=== PATIENT | female | born 1985 | race African-American/Black ===

== ENCOUNTER 2022-01-20 09:05 | Outpatient (REF) | payer OTHER, SELFPAY ==
[2022-01-20 11:33] LABS: MANUAL DIFF FLAG NO
[2022-01-20 11:43] LABS: Basophils Percent Auto 0.3 % (0-2); Eosinophils Absolute Auto 0.2 X10*3/uL (0.0-0.4); Eosinophils Percent Auto 2.9 % (0-4); Hematocrit 41.8 % (37.0-47.0); Hemoglobin 13.7 g/dl (12.0-16.0); Imm Gran Abs Auto 0.02 X10*3/uL (0.00-0.03); Imm Gran Pct Auto 0.3 % (0.0-0.4); Lymphocytes Absolute Auto 2.7 X10*3/uL (1.2-4.9); Lymphocytes Percent Auto 38.8 % (20-40); Mean Corpuscular HGB Conc 32.8 g/dl (31.0-35.0); Mean Corpuscular Hemoglobin 26.6 pg (27.0-33.0); Mean Corpuscular Volume 81.2 fL (80.0-98.0); Mean Platelet Volume 12.3 fL (9.4-12.3); Monocytes Absolute Auto 0.8 X10*3/uL (0.1-1.2); Monocytes Percent Auto 11.7 % (2-11); Neutrophils Absolute Auto 3.2 x10*3/uL (2.0-8.3); Platelet Count 234 X10*3/uL (160-400); Red Blood Count 5.15 X10*6/uL (4.20-5.50); Red Cell Distribution Width 13.2 % (11.0-16.0); White Blood Count 6.9 X10*3/uL (4.8-10.8)
[2022-01-20 12:12] LABS: TSH reflex Free T4 1.01 uIU/mL (0.32-4.0)
[2022-01-20 12:14] LABS: Appearance Urine CLEAR; Color Urine YELLOW; Glucose Urine UA NEG (NEG); Leukocyte Esterase Urine TRACE (NEG); Nitrite Urine NEG (NEG); PH 6.5 (5.0-8.0); Urine Blood 1+ (NEG); Urine Ketones NEG (NEG); Urine Protein NEG (NEG-TRACE)
[2022-01-20 12:15] LABS: Alanine Aminotransferase 40 U/L (0-31); Alkaline Phosphatase 69 U/L (39-117); Anion Gap 13 (12-20); Aspartate Amino Transferase 32 U/L (5-31); Bilirubin Total 0.4 mg/dL (0.0-1.0); Blood Urea Nitrogen 10 mg/dL (9-16); Calcium 9.5 mg/dL (8.4-10.2); Carbon Dioxide 24 mmol/L (22-29); Chloride 108 mmol/L (96-108); Cholesterol 169 mg/dL; Estimated Glomerular Filt Rate > 60; Glucose Fasting 78 mg/dL (60-99); HDL Cholesterol 46 mg/dL; LDL Cholesterol Calculated 111 mg/dl; Potassium 4.5 mmol/L (3.3-5.1); Sodium 140 mmol/L (135-145); Total Protein 7.4 g/dL (6.5-8.0); Triglycerides 60 mg/dL
[2022-01-20 12:46] LABS: RBC Urine 0-2 /HPF (0); Squamous Epithelial Cell Urine 2+ /LPF; WBC Urine 0-2 /HPF (0-4)
== END 2022-01-20 09:06 | disposition home or self-care (01) ==
LOC: HO.WFDLDS 09:05
PROVIDERS: Visit Provider Family Medicine
DX: Z00.00 Encounter for general adult medical examination without abnormal findings (principal)
CPT/HCPCS: 36415; 80053; 80061; 81001; 81003; 84443; 85025

== ENCOUNTER 2022-03-26 09:40 | Outpatient (REF) | payer OTHER, SELFPAY ==
[2022-03-26 11:50] LABS: Alanine Aminotransferase 47 U/L (0-31); Albumin Level 3.9 g/dL (3.5-5.0); Alkaline Phosphatase 69 U/L (39-117); Aspartate Amino Transferase 37 U/L (5-31); Bilirubin Direct < 0.2 mg/dL (0.0-0.5); Bilirubin Total 0.2 mg/dL (0.0-1.0); Total Protein 7.4 g/dL (6.5-8.0)
== END 2022-03-26 09:41 | disposition home or self-care (01) ==
LOC: HO.WFDLDS 09:40
PROVIDERS: Visit Provider Family Medicine
DX: R74.8 Abnormal levels of other serum enzymes (principal)
CPT/HCPCS: 36415; 80076

== ENCOUNTER 2023-04-05 10:53 | Outpatient (REF) | payer OTHER, SELFPAY ==
[2023-04-05 14:08] LABS: Appearance Urine Clear; Color Urine Yellow; Glucose Urine UA Negative (Negative); Leukocyte Esterase Urine Trace (Negative); Nitrite Urine Negative (Negative); PH 5.5 (5.0-9.0); Specific Gravity - Urine 1.015 (1.005-1.025); UMIC TRIGGER UA YES; Urine Blood Negative (Negative); Urine Ketones Negative (Negative); Urine Protein Negative (Neg-Trace)
[2023-04-05 14:11] LABS: Bacteria Urine None Seen (None Seen); Hyaline Casts Urine 0-2 /LPF (0-2); RBC Urine 0-2 /HPF (0-2); Squamous Epithelial Cell Urine 0-2 /HPF (0-2); WBC Urine 0-5 /HPF (0-5)
[2023-04-05 14:30] LABS: Amphetamine Screen Urine Not Detected (Not Detect); Barbiturates, Urine Not Detected (Not Detect); Benzodiazepines Screen Urine Not Detected (Not Detect); Cannabinoid Screen Urine Not Detected (Not Detect); Cocaine Screen Urine Not Detected (Not Detect); Fentanyl, urine Not Detected (Not Detect); Opiate Screen Urine Not Detected (Not Detect); Phencyclidine Screen Urine Not Detected (Not Detect)
[2023-04-05 14:34] LABS: Creatinine Urine 129.78 mg/dL; Microalbum/Creatinine Ratio Ur 4.6 ug/mg cr
[2023-04-05 14:52] LABS: Alanine Aminotransferase 18 U/L (0-31); Albumin Level 4.1 g/dL (3.5-5.0); Alkaline Phosphatase 74 U/L (39-117); Anion Gap 14 (12-20); Aspartate Amino Transferase 21 U/L (5-31); Bilirubin Total 0.5 mg/dL (0.0-1.0); Blood Urea Nitrogen 11 mg/dL (9-16); Calcium 9.7 mg/dL (8.4-10.2); Carbon Dioxide 23 mmol/L (22-29); Chloride 108 mmol/L (96-108); Cholesterol 189 mg/dL; Estimated Glomerular Filt Rate > 60; Glucose Fasting 72 mg/dL (60-99); HDL Cholesterol 46 mg/dL; LDL Cholesterol Calculated 131 mg/dl; Potassium 4.5 mmol/L (3.3-5.1); Sodium 140 mmol/L (135-145); TSH reflex Free T4 1.28 uIU/mL (0.32-4.0); Total Protein 7.7 g/dL (6.5-8.0); Triglycerides 61 mg/dL
== END 2023-04-05 10:54 | disposition home or self-care (01) ==
LOC: HO.WFDLDS 10:53
PROVIDERS: Visit Provider Family Medicine
DX: Z00.00 Encounter for general adult medical examination without abnormal findings (principal); Z02.1 Encounter for pre-employment examination; I10 Essential (primary) hypertension
CPT/HCPCS: 80053; 80061; 80307; 81001; 81003; 82043; 84443

== ENCOUNTER 2023-06-11 09:45 | Outpatient (AMB) | payer OTHER, SELFPAY ==
--- NOTE | 2023-06-11 09:48 | MHC.OFFVIS ---
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 Pt reports loud snoring and witnessed apnea spells. She reports gasping arousals, non refreshing sleep with daytime sleepiness. She works 2nd shift and having difficulty falling asleep after work until 1-2 am. Sleep questionnaire: Have you ever been diagnosed with a sleep disorder? No. Have you ever had a sleep study in the past? No. Have you ever been treated for a sleep disorder? No. Do you take medications for a sleep disorder? Tried melatonin, but not helpful. Do you snore? Yes. Do you wake up gasping at night? Yes. Do you have episodes of apneas? Yes. If yes, are they witnessed? Yes, by her . Do you have episodes of nocturnal chest pain or dyspnea? Yes, sometimes. Do you have difficulty initiating sleep? Yes. Do you have difficulty maintaining sleep? Yes. Do you wake up tired? Yes. Do you have headaches upon awakening? No. Do you wake up with dry mouth or throat? Yes. Do you have GERD? Yes. Do you have nocturia? No. Do you have nocturnal leg cramps? Yes. Do you have symptoms of restless legs? No. Do you act out your dreams? No. Sleep hygiene questionnaire: What is your usual sleep routine? Usual bedtime is at 1 am; Usual wake up time is at 5 am. Do you take naps? No. Is your sleep environment cool, dark, and quiet? Yes. Do you exercise? Yes, cycling, and wt training. Do you take caffeine or other stimulants? Yes, coffee. Do you use electronics in bed? Yes. What is your work schedule? 3-11 pm. Hypersomnolence questionnaire: Do you have daytime tiredness or fatigue? Yes. Do you easily fall asleep when inactive? No. Have you ever had episodes of sudden weakness? No. Have you ever had episodes of sudden weakness associated with strong emotions? No. PFSH Surgical History History of Family History (Updated 06/11/23 @ 09:50 by Madie Sotomayor CMA) Mother HTN (hypertension) Father HTN (hypertension) Social History (Updated 06/11/23 @ 09:51 by Madie Sotomayor [facility]) Housing: House Alcohol intake: never Patient Tobacco Use Status: Never used Tobacco e-Cigarette/Vaping Use: Never Used Second Hand Smoke Exposure: No service: No Current occupational status: employed Current occupational exposures/hazards: No Cognitive needs: No Hearing needs: No Vision needs: No Review of Systems Const All systems reviewed & are unremarkable except as noted in HPI and below ENT Reports Normal hearing present Neuro Reports Normal hearing present Physical Exam Vital Signs: Last Vital Signs Pulse 78 06/11/23 09:51 BP 130/82 06/11/23 09:51 Pulse Ox 96 06/11/23 09:51 Oxygen Delivery Method Room Air 06/11/23 09:51 BMI result Body Mass Index 35.0 Const General: cooperative Nutritional Appearance: obese Orientation/consciousness: patient oriented x3 HEENT Throat: Yes other (mallampati grade 4) Neck Neck: Yes full ROM and Yes supple Resp Effort & Inspection: normal respiratory effort and able to speak in complete sentences Neuro General: patient oriented x3, gait normal and moves all extremities Cranial nerves: Yes Bilaterally intact EOM present, Yes Normal facial strength present, Yes Midline tongue present, Yes Symmetric palate elevation present, Yes Normal hearing present and Yes Ability to bilaterally rotate head present Cognition (Neuro): normal cognition Psych Appearance: grossly normal Mental Status: mental status grossly normal Speech and movement: Normal speech and movement present Affect: normal affect Attitude: cooperative Assessment & Plan Assessment & Plan (1) Daytime sleepiness: Code(s): R40.0 - Somnolence (2) Snoring: Code(s): R06.83 - Snoring (3) Obesity (BMI 30-39.9): Code(s): E66.9 - Obesity, unspecified Plan Pt is advised to undergo home sleep study to assess for sleep apnea. Will f/u with pt after study to discuss results and appropriate treatment options. Sleep hygiene education provided. Limit caffeine intake after 4 pm. Wt reudction advised. Pt to call with any worsening concerns or questions. Orders: Orders RT home sleep study Today E66.9 - Obesity, unspecified, R06.83 - Snoring, R40.0 - Somnolence Coding Level of Care Code New Pt Level 3 (67840) Diagnoses Daytime sleepiness R40.0 Snoring R06.83 Obesity (BMI 30-39.9) E66.9
[2023-06-11 09:51] VITALS: BP 130/82; PULSE 78; O2SAT 96; BMI 35.0
== END 2023-06-11 10:31 | disposition home or self-care (01) ==
PROVIDERS: PCP Family Medicine; Visit Provider Nurse Practitioner Family
DX: R40.0 Somnolence (principal); R06.83 Snoring; E66.9 Obesity, unspecified
CPT/HCPCS: 99203

== ENCOUNTER → 2023-06-11 09:45 | Outpatient (BNVA) | payer OTHER, SELFPAY | PROVIDERS: PCP Family Medicine; Visit Provider Nurse Practitioner Family ==

== ENCOUNTER → 2023-07-20 10:54 | Outpatient (REF) | payer OTHER, SELFPAY | LOC: HO.SL 10:54 | PROVIDERS: PCP Family Medicine; Visit Provider Nurse Practitioner Family | DX: R06.83 Snoring (principal); R40.0 Somnolence; E66.9 Obesity, unspecified | CPT/HCPCS: 95806 ==

== ENCOUNTER → 2023-07-20 11:11 | Outpatient (BNV) | payer OTHER, SELFPAY | PROVIDERS: PCP Family Medicine; Visit Provider Psychiatry & Neurology Neurology | DX: R06.83 Snoring (principal) | CPT/HCPCS: 95806 ==

== ENCOUNTER 2023-12-21 11:00 | Outpatient (AMB) | payer OTHER, SELFPAY ==
--- NOTE | 2023-12-21 11:08 | MHC.OFFWIV ---
Intake Vital Signs 12/21/23 11:14 Height 5 ft 8 in Weight 222 lb BMI 33.8 BP 126/66 Blood Pressure Location Lt brachial Position Sitting Respiration 13 Pulse 80 Pulse Source Pulse Oximeter Pulse Oximetry (%) 98 Oxygen Delivery Method Room Air Intake Visit Reasons: stomach pain Intake Note: Patient reports experiencing pain in the mid sternum area after eating. Patient states tums helps for a few minutes. Patient states she used to take omeprazole previously. Patient reports the pain was worse on Wednesday and Wednesday this past weekend. Patient Tobacco Use Status: Never used Tobacco Gas Adjuster Required: No Accompanied by: Self / Same As Patient Allergies No Known Allergies Allergy (Verified 12/21/23 11:44) Medication List - Last [facility]21[facility]23 [facility] No Known Home Meds Do you need a note to return to daycare/school/sports/work: No HPI HPI Comments History of Present Illness Details Here today with complaints of epigastric/sternal pain that started over the weekend. Reports she does have a history of similar symptoms dating back over the years of which she is self-treated with Tums and PPI. Initially Tums a PPI would help her symptoms. However over the weekend when her symptoms returned Tums only bought her short-lived relief. She did not restart omeprazole. She feels that the pain is worse with an empty stomach. That eating heavy foods make the pain go away. This is associated with mild nausea. Not active w/ GI Etoh: social Does not use NSAIDs Denies fever, chills, vomiting, normal elimination. [facility] Surgical History History of Family History (Updated 06/11/23 @ 09:50 by Madie Sotomayor CMA) Mother HTN (hypertension) Father HTN (hypertension) Social History (Updated 06/11/23 @ 09:51 by Madie Sotomayor CMA) Housing: House Alcohol intake: never Patient Tobacco Use Status: Never used Tobacco e-Cigarette/Vaping Use: Never Used Second Hand Smoke Exposure: No service: No Current occupational status: employed Current occupational exposures/hazards: No Cognitive needs: No Hearing needs: No Vision needs: No Review of Systems Const All systems reviewed & are unremarkable except as noted in HPI and below Physical Exam Vital Signs: Last Vital Signs Pulse 80 12/21/23 11:14 Resp 13 12/21/23 11:14 BP 126/66 12/21/23 11:14 Pulse Ox 98 12/21/23 11:14 Oxygen Delivery Method Room Air 12/21/23 11:14 BMI result Body Mass Index 33.8 Const Other: Awake alert oriented no acute distress Sclera is nonicteric bilat Mucous membranes moist, pharynx within normal limits Regular rate and rhythm Abdomen soft, mildly tender right upper quadrant, negative Galindo's sign, negative peritoneal signs, bowel sounds within normal limits x4 quads, mild tenderness over suprapubic area Assessment & Plan Assessment & Plan (1) Epigastric pain: Code(s): R10.13 - Epigastric pain Plan: Plan will be to check labs today. As well as a stool for H pylori. Advised to not take antacids or PPI until the stool sample is returned. She hopes to return the stool tonight or tomorrow morning. I will phone her once the results are back to come up with a plan. If the results are negative she does wish for for a referral to GI for further evaluation and treatment. CBC within normal limits, CMP within normal limits, iron profile within normal limits, amylase lipase B12 and folate all within normal limits UA within normal limits Urine culture pending along with H pylori stool (2) Suprapubic tenderness: Code(s): R10.819 - Abdominal tenderness, unspecified site Plan: Noted on exam today. We will check a UA to rule out any cause. I do not think this is related to her epigastric pain reported today CBC within normal limits, CMP within normal limits, iron profile within normal limits, amylase lipase B12 and folate all within normal limits UA within normal limits Urine culture pending along with H pylori stool Plan This note is constructed using voice recognition software. While every effort has been made to ensure accuracy in explosive technician, still errors may have been included Sometimes, these errors may affect the content or meaning of the given sentence . Total time spent caring for the patient today was 30 minutes. This includes time spent before the visit reviewing the chart, time spent during the visit, and time spent after the visit on documentation. Orders: Orders Comprehensive Met. Panel 12/21/23 R10.13 - Epigastric pain Amylase 12/21/23 R10.13 - Epigastric pain Complete Blood Count no Diff 12/21/23 R10.13 - Epigastric pain Vitamin B12 and Folate 12/21/23 R10.13 - Epigastric pain H pylori Ag Stool 12/21/23 R10.13 - Epigastric pain UA CC w/rflx Micro + Cult 12/21/23 R10.819 - Abdominal tenderness, unspecified site Lipase 12/21/23 R10.13 - Epigastric pain IRON PROFILE 12/21/23 R10.13 - Epigastric pain Patient Instructions: Avoid foods that trigger the symptoms Eat small amounts frequently Try things like black liquorice, peppermint tea, ginerale or kj tea as this can help along w/ milk or yogurt. Do not take any antacids or omeprazole until stool sample is returned. Coding Level of Care Code Est Pt Level 4 (31405) Diagnoses Epigastric pain R10.13 Suprapubic tenderness R10.819
[2023-12-21 11:14] VITALS: BP 126/66; PULSE 80; RESP 13; O2SAT 98; BMI 33.8
== END 2023-12-21 13:29 | disposition home or self-care (01) ==
PROVIDERS: PCP Family Medicine; Visit Provider Nurse Practitioner Family
DX: R10.13 Epigastric pain (principal); R10.819 Abdominal tenderness, unspecified site
CPT/HCPCS: 99214

== ENCOUNTER 2023-12-21 12:00 | Outpatient (REF) | payer OTHER, SELFPAY ==
[2023-12-21 14:55] LABS: Hematocrit 39.2 % (37.0-47.0); Hemoglobin 13.1 g/dl (12.0-16.0); Mean Corpuscular HGB Conc 33.4 g/dl (31.0-35.0); Mean Corpuscular Hemoglobin 26.6 pg (27.0-33.0); Mean Corpuscular Volume 79.7 fL (80.0-98.0); Mean Platelet Volume 12.6 fL (9.4-12.3); Platelet Count 255 X10*3/uL (160-400); Red Blood Count 4.92 X10*6/uL (4.20-5.50); Red Cell Distribution Width 13.9 % (11.0-16.0); White Blood Count 7.5 X10*3/uL (4.8-10.8)
[2023-12-21 15:11] LABS: Appearance Urine Clear; Color Urine Yellow; Glucose Urine UA Negative (Negative); Leukocyte Esterase Urine Moderate (2+) (Negative); Nitrite Urine Negative (Negative); UMIC TRIGGER UACC YES; Urine Blood Negative (Negative); Urine Ketones Negative (Negative); Urine Protein Negative (Neg-Trace)
[2023-12-21 15:24] LABS: Bacteria Urine None Seen (None Seen); Hyaline Casts Urine 0-2 /LPF (0-2); RBC Urine 0-2 /HPF (0-2); Squamous Epithelial Cell Urine 0-2 /HPF (0-2); WBC Urine 0-5 /HPF (0-5)
[2023-12-21 15:25] LABS: Alanine Aminotransferase 16 U/L (0-31); Albumin Level 3.9 g/dL (3.5-5.0); Alkaline Phosphatase 62 U/L (39-117); Amylase 100 U/L (28-100); Anion Gap 10 (12-20); Aspartate Amino Transferase 20 U/L (5-31); Bilirubin Total 0.3 mg/dL (0.0-1.0); Blood Urea Nitrogen 10 mg/dL (9-16); Calcium 9.3 mg/dL (8.4-10.2); Carbon Dioxide 24 mmol/L (22-29); Chloride 108 mmol/L (96-108); Estimated Glomerular Filt Rate > 60; Glucose Random 77 mg/dL (60-115); Iron 65 mcg/dL (30-160); Lipase 18 U/L (8-78); Percent Iron Saturation 20 % (15-50); Potassium 3.9 mmol/L (3.3-5.1); Sodium 138 mmol/L (135-145); Total Iron Binding Capacity 319 mcg/dL (228-428); Total Protein 7.7 g/dL (6.5-8.0); Unsaturated Iron Binding 254 ug/dL
[2023-12-21 15:45] LABS: Vitamin B12 703 pg/mL (200-900)
== END 2023-12-21 12:01 | disposition home or self-care (01) ==
LOC: HO.WFDLDS 12:00
PROVIDERS: Visit Provider Nurse Practitioner Family
DX: R10.13 Epigastric pain (principal)
CPT/HCPCS: 36415; 80053; 81001; 82150; 82607; 82746; 83540; 83690; 85027

== ENCOUNTER 2023-12-22 11:21 | Outpatient (REF) | payer OTHER, SELFPAY | END 2023-12-22 11:22 | disposition home or self-care (01) | LOC: HO.WFDLNP 11:21 | PROVIDERS: Visit Provider Nurse Practitioner Family | DX: R10.13 Epigastric pain (principal) | CPT/HCPCS: 87338 ==

== ENCOUNTER 2024-02-03 09:05 | Outpatient (REF) | payer OTHER, SELFPAY | END 2024-02-03 09:06 | disposition home or self-care (01) | LOC: HO.WFDLNP 09:05 | PROVIDERS: Visit Provider Nurse Practitioner Family | DX: A04.8 Other specified bacterial intestinal infections (principal) | CPT/HCPCS: 87338 ==

== ENCOUNTER 2024-07-31 16:04 | Outpatient (AMB) | payer OTHER, SELFPAY ==
--- NOTE | 2024-07-31 16:13 | MHC.PC.OV ---
Vital Signs 07/31/24 16:18 Height 5 ft 8 in Weight 225 lb BMI 34.2 BP 120/60 Blood Pressure Location Lt brachial Position Sitting Respiration 12 Pulse 98 Pulse Source Pulse Oximeter Temp 98.5 F Temp Source Oral Pulse Oximetry (%) 100 Oxygen Delivery Method Room Air Intake Visit Reasons: Annual Physical Intake Note: annual physical Allergies No Known Allergies Allergy (Verified 07/31/24 16:18) Medication List - Last Reconciled 07/31/24 by Aniket Jones MD No Known Home Meds Tobacco use date assessed: 04/19/23 HPI Annual Physical HPI Details 39 y/o female presents for a CPE with f/u labs and health maintenance. No recent labs to review. Pt notes she does not feel like she is emptying her urine well. Denies any dysuria. She notes she goes to the gym regularly. Reports she does her pap smear with the [employer] group at [facility]. HPI Comments History of Present Illness Details Documentation assistance for Aniket Jones MD, was provided by Sher Dubois, Ladle Repairman on 07/31/2024 at 4:24 PM EST. I, Dr. Jones, have read, observed, and verified documentation. [facility] Surgical History History of Family History (Updated 06/11/23 @ 09:50 by Madie Sotomayor [facility]) Mother HTN (hypertension) Father HTN (hypertension) Social History (Updated 07/31/24 @ 16:13 by Paulo Das [facility]) Housing: House Alcohol intake: never Patient Tobacco Use Status: Never used Tobacco e-Cigarette/Vaping Use: Never Used Second Hand Smoke Exposure: No Use of substances other than those prescribed or required for medical reasons: No service: No Current occupational status: employed Current occupational exposures/hazards: No Cognitive needs: No Hearing needs: No Vision needs: No Questionnaire PHQ-9 Over the last 2 weeks, how often have you been bothered by any of the following problems? 1. Little interest or pleasure in doing things: not at all 2. Feeling down, depressed, or hopeless: not at all 3. Trouble falling or staying asleep, or sleeping too much: nearly every day 4. Feeling tired or having little energy: not at all 5. Poor appetite or overeating: not at all 6. Feeling bad about yourself - or that you are a failure or have let yourself or your family down: not at all 7. Trouble concentrating on things, such as reading the newspaper or watching television: not at all 8. Moving or speaking so slowly that other people could have noticed. Or the opposite - being so fidgety or restless that you have been moving around a lot more than usual: not at all 9. Thoughts that you would be better off or of hurting yourself in some way: not at all Total score: 3 Depression Screening Interpretation: Negative Depression Screening Done: Yes 18071 - PHQ-9 Billing: Yes Source: Developed by Drs. Julio Ruelas, Autumn Cowan, Stephen Palacio and colleagues, with an educational scottie from [employer]. Thrive Questionnaire Date Thrive assessed: 07/31/24 I am a: Patient What is your living situation today?: I have a steady place to live Within the past 12 months, did the food you bought not last and you didn't have the money to get more?: Never true Within the past 12 months, did you worry whether your food would run out before you got money to buy more?: Never true Do you have trouble paying for medicines?: No Do you have trouble getting transportation to medical appointments?: No Do you have trouble paying your heating and electricity bill?: No Do you have trouble taking care of your child, family member or friend?: No Do you have trouble with day-to-day activities such as bathing, preparing meals, shopping, managing finances, etc.?: No Are you currently unemployed and looking for a job?: Yes Are you interested in more education?: Yes Please select the resources that you would like help with: None Currently or been in a relationship where the following occur: No concerns reported THRIVE Score: 0 AUDIT C Alcohol Use Questionnaire (AUDIT-C) 1. How often do you have a drink containing alcohol?: Monthly or less 2. How many drinks containing alcohol do you have on a typical day when you are drinking?: 1 or 2 3. How often do you have six or more drinks on one occasion?: Never Total Score: 1 JANETT-7 AMB Questionnaire JANETT-7 Date JANETT - 7 assessed: 07/31/24 Feeling nervous, anxious, or on edge: 0 = Not at all Not being able to stop or control worryin = Not at all Worrying too much about different things: 0 = Not at all Trouble relaxin = Not at all Being so restless that it is hard to sit still: 0 = Not at all Becoming easily annoyed or irritable: 0 = Not at all Feeling afraid as if something awful might happen: 2 = More than half the days Total JANETT-7 score (0-4 normal; 5-9 mild; 10-14 moderate; 15-21 severe): 2 Source: Developed by Drs. Julio Ruelas, Autumn Cowan, Stephen Palacio and colleagues, with an educational scottie from [employer]. JANETT-7 Assessment Billing JANETT-7 Assessment Tool: JANETT-7 Assessment 14770 Review of Systems Const Denies chills, Denies fatigue, Denies fever(s), Denies headache(s) and Denies weakness Eyes Denies change in vision ENT Denies dizziness, Denies headache(s), Denies hearing loss, Denies nasal congestion, Denies sinus pain, Denies sinus pressure and Denies sore throat Card Denies chest pain, Denies lightheadedness, Denies dyspnea and Denies other (palpitations) Resp Denies cough, Denies dyspnea and Denies wheezing GI Denies abdominal pain, Denies melena, Denies hematochezia, Denies change in bowel habits, Denies dyspepsia and Denies nausea Denies hematuria and Denies dysuria Musc Denies abnormal gait, Denies myalgias, Denies arthralgias, Denies numbness and Denies tingling Skin/Breast Denies rash, Denies unusual bruising and Denies wounds Neuro Denies abnormal gait, Denies dizziness, Denies headache(s), Denies memory loss, Denies numbness, Denies Sensory deficit (Neuro), Denies tingling and Denies weakness Psych Denies anxiety, Denies depression and Denies memory loss Endo Denies cold intolerance, Denies fatigue, Denies heat intolerance, Denies polydipsia and Denies polyuria Phani/Lymph Denies easy bleeding and Denies easy bruising Aller/Immun Denies wheezing Physical exam (Primary Care) Vital Signs: Last Vital Signs Temp 98.5 F 07/31/24 16:18 Pulse 98 07/31/24 16:18 Resp 12 07/31/24 16:18 BP 120/60 07/31/24 16:18 Pulse Ox 100 07/31/24 16:18 Oxygen Delivery Method Room Air 07/31/24 16:18 BMI result Body Mass Index 34.2 Tobacco/Smoking Status: Tobacco use Status Tobacco use date assessed 04/19/23 07/31/24 16:19 Patient Tobacco Use Status Never used Tobacco 07/31/24 16:19 e-Cigarette/Vaping Use Never Used 07/31/24 16:19 PHQ-9: PHQ-9 Score PHQ-9: Total score 3 07/31/24 16:19 Depression Screening Interpretation: Negative Thrive Assessment: Date of Thrive Assessment Date Thrive assessed 07/31/24 07/31/24 16:19 Currently or been in a relationship where the following occur: No concerns reported Const General: no acute distress, well developed, alert and awake Nutritional Appearance: well nourished Orientation/consciousness: patient oriented x3 HENMT Head: Yes normocephalic and Yes atraumatic Ears: hearing grossly normal bilaterally and TM's normal bilaterally General nose exam: Normal external nose present and Normal nares present Mouth: Normal oral and palatal mucosa present and moist mucous membranes Teeth and gingiva: dentition normal Throat: Yes posterior oropharynx normal Eyes General: appearance normal, both eyes and all related structures Pupils: Equal, round and reactive pupils present and Pupil accommodation reflex normal EOM: EOMs intact bilaterally Neck Neck: Yes normal visual inspection, Yes no lymphadenopathy and Yes trachea midline Thyroid: Thyroid normal Carotids: no bruits Lymphatic: no lymphadenopathy noted Chest Chest palpation & inspection: normal inspection of the chest Resp Effort & Inspection: normal respiratory effort Auscultation: clear to auscultation bilaterally Cardio Rate: regular rate Rhythm: regular rhythm Heart sounds: S1 normal heart sound present, S2 normal heart sound present, no gallops, no murmurs and no rubs Bruits: no abdominal aortic bruits and no carotid bruits GI Palpation (GI): No Abdominal aortic bruit present, Soft to palpation, nontender, No hepatosplenomegaly present and No Rebound tenderness present Auscultation: normal bowel sounds General: Yes no CVA tenderness Back/Spine/Pelvis Back: no CVA tenderness Cervical Spine: cervical ROM normal and No Cervical spine tenderness Thoracic/Lumbar Spine: thoraco-lumbar ROM normal, No pain with thoraco-lumbar ROM, No thoracic spinal tenderness and No lumbar spinal tenderness Skin Lesions: no lesions Rashes: no rashes Trauma: no lacerations or abrasions Wounds: no wounds Nails: normal Neuro General: patient oriented x3 Cranial nerves: Yes Equal, round and reactive pupils present Cognition (Neuro): normal cognition Gait exam (Neuro): Normal gait present Motor exam (neuro): 5/5 motor strength present throughout Sensory Exam: No Sensory deficit (Neuro) Deep tendon reflexes (DTR's): Right patellar reflex intensity grade: 2+ and Left patellar reflex intensity grade: 2+ Extrem General: Yes normal to inspection and No edema Psych Appearance: grossly normal Affect: normal affect Attitude: cooperative Thought process: Normal thought process present Assessment and Plan Assessment & Plan (1) Adult general medical exam: Code(s): Z00.00 - Encounter for general adult medical examination without abnormal findings Plan: 39-year-old?female?presents?for?complete?physical?exam Encouraged?healthy?diet?with?active?lifestyle?and?plenty?of?exercise (2) H. pylori infection: Code(s): A04.8 - Other specified bacterial intestinal infections Plan: History?of?H?pylori?infection This?appears?resolved (3) Screening for cervical cancer: Code(s): Z12.4 - Encounter for screening for malignant neoplasm of cervix Plan: Patient?says?she?had?a?Pap?smear?few?months?ago. Follow-up?with?informatics nurse?as?recommended (4) Urinary retention: Code(s): R33.9 - Retention of urine, unspecified Plan: Complaints?of?incomplete?emptying She?requests?a?referral?to??Ry (5) Neoplasm of uncertain behavior of skin: Code(s): D48.5 - Neoplasm of uncertain behavior of skin Plan: Left?3rd?finger?tip?and?nail Referred?to?dermatology Orders: Referrals Dermatology Referral D48.5 - Neoplasm of uncertain behavior of skin Urology Referral R33.9 - Retention of urine, unspecified Coding Level of Care Code Est Pt Level 3 (16686) Est Pt Prev Care 18-39y(36721) Diagnoses Adult general medical exam Z00.00 H. pylori infection A04.8 Screening for cervical cancer Z12.4 Urinary retention R33.9 Neoplasm of uncertain behavior of skin D48.5 Additional Codes JANETT-7 Assessment Billing - JANETT-7 Assessment Tool: JANETT-7 Assessment [id number] ([id number])
[2024-07-31 16:18] VITALS: BP 120/60; PULSE 98; RESP 12; TEMP 36.9; O2SAT 100; BMI 34.2
== END 2024-07-31 16:43 | disposition home or self-care (01) ==
PROVIDERS: PCP Family Medicine; Visit Provider Family Medicine
DX: Z00.00 Encounter for general adult medical examination without abnormal findings (principal); A04.8 Other specified bacterial intestinal infections; R33.9 Retention of urine, unspecified; D48.5 Neoplasm of uncertain behavior of skin

== ENCOUNTER → 2024-07-31 16:04 | Outpatient (BNVA) | payer OTHER, SELFPAY | PROVIDERS: PCP Family Medicine; Visit Provider Family Medicine | DX: Z00.01 Encounter for general adult medical examination with abnormal findings (principal); R33.9 Retention of urine, unspecified; D48.5 Neoplasm of uncertain behavior of skin; Z86.19 Personal history of other infectious and parasitic diseases | CPT/HCPCS: 96127 ==

== ENCOUNTER 2024-08-30 10:00 | Outpatient (REF) | payer OTHER, SELFPAY ==
[2024-08-30 11:31] LABS: MANUAL DIFF FLAG NO
[2024-08-30 11:33] LABS: Basophils Absolute Auto 0.1 X10*3/uL (0.0-0.2); Basophils Percent Auto 0.7 % (0-2); Eosinophils Absolute Auto 0.2 X10*3/uL (0.0-0.4); Eosinophils Percent Auto 2.4 % (0-4); Hematocrit 39.7 % (37.0-47.0); Hemoglobin 12.9 g/dl (12.0-16.0); Imm Gran Abs Auto 0.01 X10*3/uL (0.00-0.03); Imm Gran Pct Auto 0.1 % (0.0-0.4); Lymphocytes Absolute Auto 2.9 X10*3/uL (1.2-4.9); Lymphocytes Percent Auto 40.9 % (20-40); Mean Corpuscular HGB Conc 32.5 g/dl (31.0-35.0); Mean Corpuscular Hemoglobin 26.2 pg (27.0-33.0); Mean Corpuscular Volume 80.7 fL (80.0-98.0); Mean Platelet Volume 12.4 fL (9.4-12.3); Monocytes Absolute Auto 0.6 X10*3/uL (0.1-1.2); Monocytes Percent Auto 9.1 % (2-11); Neutrophils Absolute Auto 3.3 x10*3/uL (2.0-8.3); Neutrophils Percent Auto 46.8 % (45-73); Platelet Count 223 X10*3/uL (160-400); Red Blood Count 4.92 X10*6/uL (4.20-5.50); Red Cell Distribution Width 13.8 % (11.0-16.0); White Blood Count 7.1 X10*3/uL (4.8-10.8)
[2024-08-30 11:34] LABS: Appearance Urine Clear; Color Urine Yellow; Glucose Urine UA Negative (Negative); Leukocyte Esterase Urine Negative (Negative); Nitrite Urine Negative (Negative); PH 6.5 (5.0-9.0); Specific Gravity - Urine 1.015 (1.005-1.025); Urine Blood Negative (Negative); Urine Ketones Negative (Negative); Urine Protein Negative (Neg-Trace)
[2024-08-30 12:08] LABS: Creatinine Urine 72.49 mg/dL; Microalbumin Urine < 5.0 mg/L
[2024-08-30 12:19] LABS: Alanine Aminotransferase 25 U/L (0-31); Albumin Level 3.9 g/dL (3.5-5.0); Alkaline Phosphatase 63 U/L (39-117); Anion Gap 11 (12-20); Aspartate Amino Transferase 25 U/L (5-31); Bilirubin Total 0.3 mg/dL (0.0-1.0); Blood Urea Nitrogen 14 mg/dL (9-16); Calcium 9.4 mg/dL (8.4-10.2); Carbon Dioxide 25 mmol/L (22-29); Chloride 108 mmol/L (96-108); Cholesterol 191 mg/dL (<200); Estimated Glomerular Filt Rate > 60; Glucose Fasting 77 mg/dL (60-99); HDL Cholesterol 60 mg/dL (>40); LDL Cholesterol Calculated 122 mg/dL (<100); Potassium 4.2 mmol/L (3.3-5.1); Sodium 140 mmol/L (135-145); Total Protein 7.6 g/dL (6.5-8.0); Triglycerides 49 mg/dL (<150)
[2024-08-30 13:30] LABS: TSH reflex Free T4 1.41 uIU/mL (0.32-4.0)
== END 2024-08-30 10:01 | disposition home or self-care (01) ==
LOC: HO.WFDLDS 10:00
PROVIDERS: Visit Provider Family Medicine
DX: Z00.00 Encounter for general adult medical examination without abnormal findings (principal); I10 Essential (primary) hypertension
CPT/HCPCS: 36415; 80053; 80061; 81003; 82043; 82570; 84443; 85025

== ENCOUNTER 2024-09-06 11:29 | Outpatient (AMB) | payer OTHER, SELFPAY ==
--- NOTE | 2024-09-06 11:29 | MHC.PC.OV ---
Intake Visit Reasons: f/u CPE-labs via telemedicine Intake Note: f/u for labs Allergies No Known Allergies Allergy (Verified 09/06/24 11:29) Tobacco use date assessed: 04/19/23 HPI f/u CPE-labs via telemedicine HPI Details 39 y/o female presents to f/u labs via telemedicine. Labs drawn 08/30/24. Reviewed labs with pt. Triglycerides 49. TC 191. LDL 122. HDL 60. PFSH Surgical History History of Family History (Updated 06/11/23 @ 09:50 by Madie Sotomayor [facility]) Mother HTN (hypertension) Father HTN (hypertension) Social History (Updated 07/31/24 @ 16:13 by Paulo Das [facility]) Housing: House Alcohol intake: never Patient Tobacco Use Status: Never used Tobacco e-Cigarette/Vaping Use: Never Used Second Hand Smoke Exposure: No service: No Current occupational status: employed Current occupational exposures/hazards: No Cognitive needs: No Hearing needs: No Vision needs: No Questionnaire Thrive Questionnaire Date Thrive assessed: 07/31/24 JANETT-7 AMB Questionnaire JANETT-7 Date JANETT - 7 assessed: 07/31/24 Source: Developed by Drs. Julio Ruelas, Autumn Cowan, Stephen Palacio and colleagues, with an educational scottie from [employer]. Review of Systems Const Denies chills, Denies fatigue, Denies fever(s), Denies headache(s) and Denies weakness ENT Denies dizziness and Denies headache(s) Card Denies dyspnea Resp Denies cough, Denies dyspnea, Denies wheezing and Denies other (shortness of breath) Musc Denies numbness and Denies tingling Neuro Denies dizziness, Denies headache(s), Denies numbness, Denies tingling and Denies weakness Psych Denies anxiety and Denies depression Endo Denies fatigue Aller/Immun Denies wheezing Physical exam (Primary Care) Tobacco/Smoking Status: Tobacco use Status Tobacco use date assessed 04/19/23 09/06/24 11:30 Patient Tobacco Use Status Never used Tobacco 09/06/24 11:30 e-Cigarette/Vaping Use Never Used 09/06/24 11:30 Thrive Assessment: Date of Thrive Assessment Date Thrive assessed 07/31/24 09/06/24 11:30 Telehealth Telehealth Telehealth Platform: Telephone Location of provider rendering services: practice address Location of patient: address on file Patient Identification confirmed using: Name, : Yes Telehealth method: voice only Patient verbally consented to treatment: Yes Patient verbally consented to billing insurance company: Yes Patient informed of any privacy concerns related to visit: Yes Coding Level of Care Code Tele Est Pt Level 2 (97040) Diagnoses Elevated LDL cholesterol level E78.00 Urinary retention R33.9 Obesity (BMI 30-39.9) E66.9 Assessment & Plan Assessment & Plan (1) Elevated LDL cholesterol level: Code(s): E78.00 - Pure hypercholesterolemia, unspecified Category: Medical Plan: Elevated?LDL?cholesterol?though?HDL?ratios?are?good Encouraged?a?diet?lower?in?saturated?fats?and?cholesterol (2) Urinary retention: Code(s): R33.9 - Retention of urine, unspecified Category: Medical Plan: She?has?an?upcoming?appointment?with?Urology Follow-up?with?urology (3) Obesity (BMI 30-39.9): Code(s): E66.9 - Obesity, unspecified Category: Medical Plan: Had?referred?patient?to?weight?management?program?but?they?are?not?taking?patients. Patient?would?like?to?discuss?using?Ozempic Will?have?her?schedule?an?appointment?to?discuss?further?and?set?up?appointment?for?follow-up?as?well Orders: Orders Lipid Panel 9 Months Z00.00 - Encounter for general adult medical examination without abnormal findings Microalbumin, Random (w Creat) 9 Months I10 - Essential (primary) hypertension UA and rflx microscopic 9 Months Z00.00 - Encounter for general adult medical examination without abnormal findings Comprehensive [place]. Panel Fast 9 Months Z00.00 - Encounter for general adult medical examination without abnormal findings Complete Blood Count Auto Diff 9 Months Z00.00 - Encounter for general adult medical examination without abnormal findings TSH reflex Free T4 9 Months Z00.00 - Encounter for general adult medical examination without abnormal findings
== END 2024-09-06 16:57 | disposition home or self-care (01) ==
LOC: HO.HMCFM 11:29
PROVIDERS: PCP Family Medicine; Visit Provider Family Medicine
DX: E78.00 Pure hypercholesterolemia, unspecified (principal); R33.9 Retention of urine, unspecified; E66.9 Obesity, unspecified

== ENCOUNTER 2024-10-05 10:59 | Outpatient (AMB) | payer OTHER, SELFPAY ==
--- NOTE | 2024-10-05 11:19 | MHC.OFFVIS ---
Intake Visit Reasons: incomplete bladder emptying Intake Note: New patient Presents for Incomplete Emptying Any Urology Medication: None Antibiotic Allergies: None Blood Thinners: None Any Family History (Urological): Bladder Cancer? no Prostate Cancer? no PVR: 0ml Symptoms: Patient states that she has not been fully emptying her bladder Allergies No Known Allergies Allergy (Verified 10/05/24 11:25) PFSH Surgical History History of Family History (Updated 06/11/23 @ 09:50 by Madie Sotomayor CMA) Mother HTN (hypertension) Father HTN (hypertension) Social History (Updated 07/31/24 @ 16:13 by Paulo Das [facility]) Housing: House Alcohol intake: never Patient Tobacco Use Status: Never used Tobacco e-Cigarette/Vaping Use: Never Used Second Hand Smoke Exposure: No service: No Current occupational status: employed Current occupational exposures/hazards: No Cognitive needs: No Hearing needs: No Vision needs: No Office Procedures Post Void Residual Post Residual Void Post Void Residual (PVR): 0 [id number] Void Residual by ultrasound Results AMB Urinalysis, Automated UA Leukoctes 0 Agustin/uL Last Edit by Stefany Hobbs CMA on 10/05/24 11:46 UA Nitrite Negative Last Edit by Stefany Hobbs CMA on 10/05/24 11:46 UA Urobilinogen 0.2 mg/dL Last Edit by Stefany Hobbs CMA on 10/05/24 11:46 UA Protein 0 mg/dL Last Edit by Stefany Hobbs CMA on 10/05/24 11:46 UA pH 6.5 Last Edit by Stefany Hobbs CMA on 10/05/24 11:46 UA Blood 0 Jakcy/uL Last Edit by Stefany Hobbs CMA on 10/05/24 11:46 UA Specific [place] 1.015 Last Edit by Stefany Hobbs CMA on 10/05/24 11:46 UA Ketone Negative Last Edit by Stefany Hobbs CMA on 10/05/24 11:46 UA Bilirubin 0 mg/dL Last Edit by Stefany Hobbs CMA on 10/05/24 11:46 UA Glucose 0 mg/dL Last Edit by Stefany Hobbs CMA on 10/05/24 11:46 Assessment & Plan Assessment & Plan Orders: Orders AMB Urinalysis Automated Today Z13.9 - Encounter for screening, unspecified AMB Post Void Residual by ultrasound Today R33.9 - Retention of urine, unspecified Coding CPT Codes Post Residual Void - PVR CPT Code: 25947-[id number] Void Residual by ultrasound ([id number])
== END 2024-10-05 12:07 | disposition home or self-care (01) ==
PROVIDERS: PCP Family Medicine; Visit Provider Urology
DX: Z13.9 Encounter for screening, unspecified (principal)

== ENCOUNTER → 2024-10-05 10:59 | Outpatient (BNVA) | payer OTHER, SELFPAY | PROVIDERS: PCP Family Medicine; Visit Provider Urology | DX: R39.89 Other symptoms and signs involving the genitourinary system (principal); N34.1 Nonspecific urethritis | CPT/HCPCS: 51798; 81003 ==

== ENCOUNTER 2024-11-07 12:06 | Outpatient (REF) | payer OTHER, SELFPAY ==
--- NOTE | ~2024-11-07 | US_ITS ---
CLINICAL HISTORY: R39.89 - Other symptoms and signs involving the genitourinary system Retroperitoneal ultrasound Comparison: None Findings: The kidneys are normal in echotexture bilaterally. No hydronephrosis. The right kidney is normal in size, measuring 10.7cm in length. The left kidney is normal in size, measuring 9.9cm in length. The urinary bladder is unremarkable. Prevoid volume 299 mL. Postvoid volume 11.6 mL. Ureteral jets are visualized bilaterally. There is a peripherally calcified fibroid in the uterus measuring 5.1 x 5.3 x 5.3 cm.. Impression: Normal kidneys and bladder. Fibroid uterus. Consider a dedicated pelvic ultrasound. This document has been electronically signed by: Adriana Galvan MD on 11/08/2024 21:26:22
== END 2024-11-07 12:07 | disposition home or self-care (01) ==
LOC: HO.US 12:06
PROVIDERS: PCP Family Medicine; Visit Provider Urology
DX: R39.89 Other symptoms and signs involving the genitourinary system (principal)
CPT/HCPCS: 76770

== ENCOUNTER 2024-12-04 12:51 | Outpatient (AMB) | payer OTHER, SELFPAY ==
--- NOTE | 2024-12-04 12:56 | AM.OFFWIN_ITS ---
Intake Vital Signs 12/04/24 13:00 Height 5 ft 8 in Weight 235 lb 2 oz BMI 35.7 BP 117/70 Blood Pressure Location Rt brachial Position Sitting Respiration 12 Pulse 69 Pulse Source Pulse Oximeter Temp 97.1 F Temp Source Oral Pulse Oximetry (%) 100 Oxygen Delivery Method Room Air Intake Visit Reasons: RT ankle swollen and hurt Intake Note: Patient complaining of right ankle pain and swollen x 2 weeks but got worse yesterday Patient Tobacco Use Status: Never used Tobacco Allergies No Known Allergies Allergy (Verified 12/04/24 13:11) Medication List - Last Reconciled 12/04/24 by RADHA Diamond No Known Home Meds Do you need a note to return to daycare/school/sports/work: Yes HPI HPI Comments History of Present Illness Details The patient is a 39-year-old female presenting with right ankle pain. She reports that for the past two weeks, she has experienced mild discomfort in the right ankle, initially rating the pain as three out of ten. The pain escalates during cycling and after long periods of walking, significantly increasing after a 12-hour work shift on Wednesday. By Wednesday morning, the patient noted increased swelling and pain to the extent that she was unable to bear weight on her foot, although she had not fallen. The ankle appeared swollen, prompting her to apply a simple wrap, and she described the pain as more intense than earlier. There is no recollection of injury or trauma to the ankle. The patient does not have a history of smoking and has had two sections approximately nine years ago but no recent surgery. She denies any recent travel or prolonged immobility. Pain relief was sought through the use of ibuprofen. 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 - Exercise: Participates in cycling. - Tobacco Use: None. - Surgery History: Two sections , nine years ago. Exam Awake alert NAD Right lower ext neurovasc intact, pain w palp over medial malleolus, trace localized edema to this area Discussion Notes During the visit, we discussed the need for further evaluation of the patient?s right ankle pain. I recommended obtaining an X-ray to evaluate the possibility of a fracture. We discussed the process for the outpatient X-ray at the [place] office and [id number] instructions were provided to ensure access to the correct facility. I advised that if a fracture is confirmed, the patient would need to refrain from returning to work and consult with orthopedic specialists for further management. I reassured the patient of continued follow-up once the X-ray results are received. Additionally, we discussed a temporary brace for support, and the patient was shown how to use it correctly. Patient Instructions - Obtain an X-ray of the right ankle at the [place] office. - Wear the prescribed ankle brace for simpson pport. - Take ibuprofen for pain relief as need ed. - Updates to personal contact informatio n were recommended in the medical records. - Follow up with me for your X-ray resul ts later today. Plan - Order an X-ray for the right ankle to assess for possible fracture. - Recommend the use of an ankle brace fo r support until further evaluation. - Advise to limit weight-bearing on the affected ankle until results are available. - Instruct the patient to take ibuprofen as required for pain management. - Plan follow-up care based on X-ray out comes to determine need for orthopedic consultation. Patient was informed and verbally consented to the use of an ambient scribe for clinic note documentation during this visit. there is no fracture she does have a heel spur however this is not causing her pain she most likely has an ankle sprain recommend use of the brace provided today, elevation, NSAIDS and wt bearing as tolerated ok to return to work as scheduled Total time spent caring for the patient today was 30 minutes. This includes time spent before the visit reviewing the chart, time spent during the visit, and time spent after the visit on documentation, reviewing laboratory results, diagnostic imaging, medications, performing a medically necessary evaluation, counseling on diagnoses, care coordination, ordering appropriate tests, ordering appropriate medications, review of tests performed by other providers, reporting test results with the patient, communication with other healthcare providers. [facility] Surgical History History of Family History (Updated 06/11/23 @ 09:50 by Madie Sotomayor CMA) Mother HTN (hypertension) Father HTN (hypertension) Social History (Updated 07/31/24 @ 16:13 by [facility] Housing: House Alcohol intake: never Patient Tobacco Use Status: Never used Tobacco e-Cigarette/Vaping Use: Never Used Second Hand Smoke Exposure: No service: No Current occupational status: employed Current occupational exposures/hazards: No Cognitive needs: No Hearing needs: No Vision needs: No Physical Exam Vital Signs: Last Vital Signs Temp 97.1 F 12/04/24 13:00 Pulse 69 12/04/24 13:00 Resp 12 12/04/24 13:00 BP 117/70 12/04/24 13:00 Pulse Ox 100 12/04/24 13:00 Oxygen Delivery Method Room Air 12/04/24 13:00 BMI result Body Mass Index 35.7 Results Reviewed Results Reviewed: [facility] [address] [place] [address] Dr. Singh, CRISTAL [address] XRay Report Signed Patient: Laura Cat MR#: [id number] : 1985 Acct:[id number] Age/Sex: 39 / F ADM Date: 12/04/24 Loc: .[facility] Attending Dr: Yamilet PEÑA Ordering Physician: Yamilet Potts Date of Service: 12/04/24 Procedure(s): XR ankle RT min 3V Accession Number(s): [id number] cc: Aniket Jones MD; Yamilet Potts~ EXAMINATION: XR ANKLE, RIGHT CLINICAL INFORMATION: M25.571 - Pain in right ankle and joints of right foot COMPARISON: None available. TECHNIQUE: AP, lateral, and mortise views of the right ankle. FINDINGS: No fracture, dislocation, or suspicious bone lesion. There is anatomical alignment. The mortise is intact. The talar dome is normal. The syndesmosis is intact. The subtalar joints appear normal. The calcaneus is intact. There is a moderate-sized plantar calcaneal spur. No discrete soft tissue abnormality. No evidence of ankle joint effusion. XR/XR ankle RT min 3V IMPRESSION: No acute findings right ankle. Electronically signed by: Jurgen Moon MD 12/04/2024 02:49 PM [facility] Dictated By: Jurgne Moon MD Signed By: <Electronically signed by Jurgen Moon MD in OV> 12/04/24 1449 DD/ 1430 TD/TT: 12/04/24 1437 [employer]: Assessment & Plan Assessment & Plan (1) Right ankle pain: Code(s): M25.571 - Pain in right ankle and joints of right foot Qualifiers: Chronicity: acute Qualified Code(s): M25.571 - Pain in right ankle and joints of right foot (2) Right ankle swelling: Code(s): M25.471 - Effusion, right ankle Plan . Orders: Orders XR ankle RT min 3V Today M25.471 - Effusion, right ankle, M25.571 - Pain in right ankle and joints of right foot Coding Level of Care Code Est Pt Level 4 (97634) Diagnoses Acute right ankle pain M25.571 Chronicity: acute Right ankle swelling M25.471
[2024-12-04 13:00] VITALS: BP 117/70; PULSE 69; RESP 12; TEMP 36.2; O2SAT 100; BMI 35.7
--- OUTSIDE RECORDS SUMMARY | 2024-12-04 14:09 | XMS_ITS | Clinical Summary ---
Author Organization [facility] Address [address] [place] [address] Care Team Providers Care Commercial Plumber Name Role Phone Pcp, No Primary Care Provider [phone] Allergies No known active allergies Medications No known medications Social History Tobacco Use Types Packs/Day Years Used Date Smoking Tobacco: Never Smokeless Tobacco: Never Comments Unknown Sex and Gender Information Value Date Recorded Sex Assigned at Not on file Legal Sex Female 8:17 PM EST Gender Identity Not on file Sexual Orientation Not on file Last Filed Vital Signs Vital Sign Reading Time Taken Comments Blood Pressure 120/80 08/16/2021 3:13 PM EDT Pulse 84 08/16/2021 3:13 PM EDT Temperature 36.3 ??C (97.4 ??F) 08/16/2021 3:13 PM ED T Respiratory Rate 14 08/16/2021 3:13 PM EDT Oxygen Saturation 99% 08/16/2021 3:13 PM EDT Inhaled Oxygen Concentration - - Weight 104 kg (230 lb) 08/16/2021 3:13 PM EDT Height 172.7 cm (5' 8 ) 08/16/2021 3:13 PM EDT Body Mass Index 34.97 08/16/2021 3:13 PM EDT Plan of Treatment Health Maintenance Due Date Last Done Comments Depression: Screening Annual ly using PHQ-2/9 in Adults 18 yrs or above (or HM Modifier)([facility]) 2004 Hepatitis C Virus Infection in Adolescents and Adults: Screening (or Modifier) ([facility]) 2004 SDOH Screening Reminder: Bindu gutierres for all adults ([facility]) 2004 Tobacco Smoking Cessation: i n Adults excluding Women: Behavioral and Pharmacotherapy Interventions ([facility]) 2004 DTaP/Tdap/Td Vaccines ([facility]) (1 - Tdap) 2005 Lipid Screening: Once for Wo men aged 20 to 45 yrs ([facility]) 2006 Cervical Cancer Screenin 1-65 yrs of age (or Modifier) 2007 Cervical Cancer Screening: P ap every 3 yrs pts age 21-65 2007 Cervical Cancer: Pap Screeni ng with Modifier timing ([facility]) 2007 Cervical Cancer: hrHPV alone or with cotesting Pap for Pts 30-65yrs screening every 5yrs ([facility]) 2007 Flu Vaccination: Yearly for ages 18mos through 64 years (or Modifier)([facility]) 06/01/2024 COVID-19 Vaccine Screening: Initial Series and Booster Status ([facility]) (2023- season) 2024 Zoster/Shingles Vaccine Seri es Screening: Adults aged 18+ yrs (or HM Modifiers)([facility]) (1 of 2) 2036 Pneumococcal Vaccination Scr eening: Pts 0-19 & 19-64 yrs of age ([facility]) Aged Out No longer eligible based on patient's age to complete this topic Medical Devices Not on file Care Teams Commercial Plumber Relationship Specialty Start Date End Date Pcp, No PCP - General Family Medicine 08/16/21
== END 2024-12-04 13:39 | disposition home or self-care (01) ==
PROVIDERS: PCP Family Medicine; Visit Provider Nurse Practitioner Family
DX: M25.571 Pain in right ankle and joints of right foot (principal); M25.471 Effusion, right ankle

== ENCOUNTER 2024-12-04 12:51 | Outpatient (REF) | payer OTHER, SELFPAY ==
--- NOTE | ~2024-12-04 | XR_ITS ---
EXAMINATION: XR ANKLE, RIGHT CLINICAL INFORMATION: M25.571 - Pain in right ankle and joints of right foot COMPARISON: None available. TECHNIQUE: AP, lateral, and mortise views of the right ankle. FINDINGS: No fracture, dislocation, or suspicious bone lesion. There is anatomical alignment. The mortise is intact. The talar dome is normal. The syndesmosis is intact. The subtalar joints appear normal. The calcaneus is intact. There is a moderate-sized plantar calcaneal spur. No discrete soft tissue abnormality. No evidence of ankle joint effusion. XR/XR ankle RT min 3V IMPRESSION: No acute findings right ankle. Electronically signed by: Jurgen Moon MD 12/04/2024 02:49 PM DANIEL
== END 2024-12-04 12:52 | disposition home or self-care (01) ==
LOC: HO.HMGCX 12:51
PROVIDERS: PCP Family Medicine; Visit Provider Nurse Practitioner Family
DX: M25.571 Pain in right ankle and joints of right foot (principal); M25.471 Effusion, right ankle
CPT/HCPCS: 73610

== ENCOUNTER → 2024-12-04 14:30 | Outpatient (BNV) | payer OTHER, SELFPAY | PROVIDERS: PCP Family Medicine; Visit Provider Radiology Diagnostic Radiology | DX: M77.31 Calcaneal spur, right foot (principal) | CPT/HCPCS: 73610 ==

== ENCOUNTER 2025-01-11 16:00 | Outpatient (AMB) | payer OTHER, SELFPAY ==
--- NOTE | 2025-01-11 13:43 | A.OFFVIS_ITS ---
Intake Visit Reasons: US Results Intake Note: Patient presents to office today via telehealth-call for US results Urology Medication: None Antibiotic Allergies: None Blood Thinners: None Allergies No Known Allergies Allergy (Verified 01/11/25 16:02) HPI Comments Details: 01/11/25--39-year-old female presenting with dysuria. She was initially seen on October 05, 2024, for urinary discomfort and empirically treated with doxycycline 100 mg BID for 5 days. A renal ultrasound performed on November 08, 2024, revealed normal kidneys and bladder, although an incidental uterine fibro id was observed. She was informed by her TONNAGE COMPILATION CLERK that no action was currently required for the fibroid. Urinary Symptoms Review - Dysuria present initially during visit on October 05, 2024 - Mild urinary stream hesitancy noted - Initial treatment with doxycycline was beneficial Results - Renal Ultrasound (11/08/2024): Normal kidneys and bladder; incidental findings of uterine fibroid. 10/05/24--Laura Cat is here for new patient evaluation. She feels that she has not been fully emptying her bladder. She complains of discomfort with urination, denies hematuria. Bladder scan PVR - 0 mL. Patient reassured that today she has emptied adequately. Will empiracally trial doxycycline 100mg bid for 5 days, US retroperitoneal. [facility] Surgical History History of Family History Mother HTN (hypertension) Father HTN (hypertension) Social History Housing: House Alcohol intake: never Patient Tobacco Use Status: Never used Tobacco e-Cigarette/Vaping Use: Never Used Second Hand Smoke Exposure: No service: No Current occupational status: employed Current occupational exposures/hazards: No Cognitive needs: No Hearing needs: No Vision needs: No Review of Systems Const All systems reviewed & are unremarkable except as noted in HPI and below Reports no additional complaints Eyes Reports no additional complaints ENT Reports no additional complaints Card Reports no additional complaints Resp Reports no additional complaints GI Reports no additional complaints Reports as per HPI Musc Reports no additional complaints Skin/Breast Reports system reviewed and no additional complaints, except as documented Neuro Reports no additional complaints Psych Reports no additional complaints Endo Reports no additional complaints Phani/Lymph Reports no additional complaints Aller/Immun Reports no additional complaints Telehealth Telehealth Telehealth Platform: MATIvision Location of provider rendering services: practice address Location of patient: address on file Patient Identification confirmed using: Name, : Yes Telehealth method: video Patient verbally consented to treatment: Yes Patient verbally consented to billing insurance company: Yes Patient informed of any privacy concerns related to visit: Yes Results Reviewed Results Reviewed: Date of Service: 11/07/24 Retroperitoneal ultrasound Comparison: None Findings: The kidneys are normal in echotexture bilaterally. No hydronephrosis. The right kidney is normal in size, measuring 10.7cm in length. The left kidney is normal in size, measuring 9.9cm in length. The urinary bladder is unremarkable. Prevoid volume 299 mL. Postvoid volume 11.6 mL. Ureteral jets are visualized bilaterally. There is a peripherally calcified fibroid in the uterus measuring 5.1 x 5.3 x 5.3 cm.. Impression: Normal kidneys and bladder. Fibroid uterus. Consider a dedicated pelvic ultrasound. Assessment & Plan Assessment & Plan (1) Uterine fibroid: Code(s): D25.9 - Leiomyoma of uterus, unspecified Category: Medical (2) Slowing of urinary stream: Code(s): R39.198 - Other difficulties with micturition Category: Medical (3) Urethritis, nonspecific: Code(s): N34.1 - Nonspecific urethritis Category: Medical Plan - Alfuzosin, prescribed alpha-junior use as directed. - Monitor symptoms and contact us if there are any adverse reactions or concerns. - Follow up with your TONNAGE COMPILATION CLERK for routine monitoring of the uterine fibroid. - Schedule a return visit in four months for reassessment. - Notify our nurse if you experience any significant changes or issues with your symptoms. Medications: New alfuzosin ER administer after the same meal each day 10 mg PO DAILY 30 tabs 5RF help with urination Patient Instructions: The patient had an opportunity to ask questions regarding treatment plan. The patient expressed understanding and agreement with the above treatment plan. The patient is aware they should contact our office by phone for worsening of their current condition or the appearance of new symptoms. Compliance is encouraged with any medications and followup testing that is ordered. It is a privilege to be allowed the opportunity to participate in the urologic care of your patient. If you have any questions or concerns regarding treatment for the above conditions please do not hesitate to contact me. The office telephone contact is [phone]. This note is constructed in part using voice recognition software. While every effort has been made to ensure accuracy slitter scorer errors may have been included. Yours sincerely, Francoise Raza MD Scribe Plan - Not visible on output: Patient was informed and verbally consented to the use of an ambient scribe for clinic note documentation during this visit. Coding Level of Care Code Tele Est Pt Level 4 (23554) Diagnoses Uterine fibroid D25.9 Slowing of urinary stream R39.198 Urethritis, nonspecific N34.1
== END 2025-01-11 16:30 | disposition home or self-care (01) ==
PROVIDERS: PCP Family Medicine; Visit Provider Urology
DX: D25.9 Leiomyoma of uterus, unspecified (principal); R39.198 Other difficulties with micturition; N34.1 Nonspecific urethritis
CPT/HCPCS: 99214

== ENCOUNTER → 2025-01-11 16:00 | Outpatient (BNVA) | payer OTHER, SELFPAY | PROVIDERS: PCP Family Medicine; Visit Provider Urology ==

== ENCOUNTER 2025-02-20 11:44 | Outpatient (REF) | payer OTHER, SELFPAY ==
--- OUTSIDE RECORDS SUMMARY | 2025-02-20 14:13 | XMS_ITS | Continuity of Care Document ---
Author Organization [facility] Address [address] [place] [id number] Problems Condition ICD9 code ICD10 code SNOMED code Start Date End Date S tatus Encounter for screening for other metabolic disorders Z13.228 Results No Results Allergies, adverse reactions, alerts No known allergies and adverse reactions Medications No administered medications reported Vital Signs No vital signs reported Social History No smoking Hx information available
[2025-02-23 00:33] LABS: TS Negative Control Passed; TS Panel A 3; TS Panel B 6; TS Positive Control Passed; TSpotTB Borderline (Negative)
== END 2025-02-20 11:45 | disposition home or self-care (01) ==
LOC: HO.WFDLDS 11:44
PROVIDERS: Visit Provider Family Medicine
DX: R76.11 Nonspecific reaction to tuberculin skin test without active tuberculosis (principal)
CPT/HCPCS: 36415; 86481

== ENCOUNTER 2025-08-10 09:00 | Outpatient (AMB) | payer OTHER, SELFPAY ==
--- NOTE | 2025-08-10 09:12 | A.OFFPC_ITS ---
Vital Signs 08/10/25 09:18 Height 5 ft 8 in Weight 234 lb 3 oz BMI 35.6 BP 122/78 Blood Pressure Location Rt brachial Position Sitting Respiration 14 Pulse 68 Pulse Source Pulse Oximeter Temp 97.2 F Temp Source Temporal Artery Scan Pulse Oximetry (%) 99 Oxygen Delivery Method Room Air Intake Visit Reasons: cpe Intake Note: Laura presents the office today for her physical. Allergies No Known Allergies Allergy (Verified 08/10/25 09:15) Medication List - Last Reconciled 08/10/25 by Aniket Jones MD No Known Home Meds Tobacco use date assessed: 08/10/25 Dental Screening Dental Screen Date: 08/10/25 Did you have a dental visit in the last 12 months?: Yes Did you have a dental problem in the last 6 months where you did not have access to dental care?: No Was dental information given to patient?: Patient has dentist HPI cpe HPI Details 40 y/o female presents for a CPE with f/ u labs and health maintenance. No recent labs to review. [facility] Surgical History History of Family History (Updated 08/10/25 @ 09:16 by Delaney Saleem CMA) Mother HTN (hypertension) Father HTN (hypertension) Social History (Updated 08/10/25 @ 09:16 by Delaney Saleem CMA) Housing: House Alcohol intake: never Patient Tobacco Use Status: Never used Tobacco e-Cigarette/Vaping Use: Never Used Second Hand Smoke Exposure: No service: No Current occupational status: employed Current occupational exposures/hazards: No Cognitive needs: No Hearing needs: No Vision needs: No Questionnaire PHQ-9 Over the last 2 weeks, how often have you been bothered by any of the following problems? 1. Little interest or pleasure in doing things: not at all 2. Feeling down, depressed, or hopeless: not at all 3. Trouble falling or staying asleep, or sleeping too much: not at all 4. Feeling tired or having little energy: not at all 5. Poor appetite or overeating: not at all 6. Feeling bad about yourself - or that you are a failure or have let yourself or your family down: not at all 7. Trouble concentrating on things, such as reading the newspaper or watching television: not at all 8. Moving or speaking so slowly that other people could have noticed. Or the opposite - being so fidgety or restless that you have been moving around a lot more than usual: not at all 9. Thoughts that you would be better off or of hurting yourself in some way: not at all Total score: 0 Depression Screening Interpretation: Negative Depression Screening Done: Yes 19597 - PHQ-9 Billing: Yes Source: Developed by Drs. Julio Ruelas, Autumn Cowan, Stephen Palacio and colleagues, with an educational scottie from [employer]. Thrive Questionnaire Date Thrive assessed: 08/10/25 I am a: Patient What is your living situation today?: I have a steady place to live Within the past 12 months, did the food you bought not last and you didn't have the money to get more?: Never true Within the past 12 months, did you worry whether your food would run out before you got money to buy more?: Never true Do you have trouble paying for medicines?: No Do you have trouble getting transportation to medical appointments?: No Do you have trouble paying your heating and electricity bill?: No Do you have trouble taking care of your child, family member or friend?: No Do you have trouble with day-to-day activities such as bathing, preparing meals, shopping, managing finances, etc.?: No Are you currently unemployed and looking for a job?: No Are you interested in more education?: No Please select the resources that you would like help with: None Currently or been in a relationship where the following occur: No concerns reported THRIVE Score: 0 AUDIT C Alcohol Use Questionnaire (AUDIT-C) 1. How often do you have a drink containing alcohol?: Never 3. How often do you have six or more drinks on one occasion?: Never Total Score: 0 JANETT-7 AMB Questionnaire JANETT-7 Date JANETT - 7 assessed: 08/10/25 Feeling nervous, anxious, or on edge: 1 = Several days Not being able to stop or control worryin = Not at all Worrying too much about different things: 1 = Several days Trouble relaxin = Not at all Being so restless that it is hard to sit still: 0 = Not at all Becoming easily annoyed or irritable: 0 = Not at all Feeling afraid as if something awful might happen: 1 = Several days Total JANETT-7 score (0-4 normal; 5-9 mild; 10-14 moderate; 15-21 severe): 3 Source: Developed by Drs. Julio Ruelas, Autumn Cowan, Stephen Palacio and colleagues, with an educational scottie from [employer]. JANETT-7 Assessment Billing JANETT-7 Assessment Tool: JANETT-7 Assessment 83727 Review of Systems Const Denies chills, Denies fatigue, Denies fever(s), Denies headache(s) and Denies weakness Eyes Denies change in vision ENT Denies dizziness, Denies headache(s), Denies hearing loss, Denies nasal congestion, Denies sinus pain, Denies sinus pressure and Denies sore throat Card Denies chest pain, Denies lightheadedness, Denies dyspnea and Denies other (palpitations) Resp Denies cough, Denies dyspnea and Denies wheezing GI Denies abdominal pain, Denies melena, Denies hematochezia, Denies change in bowel habits, Denies dyspepsia and Denies nausea Denies hematuria and Denies dysuria Musc Denies abnormal gait, Denies myalgias, Denies arthralgias, Denies numbness and Denies tingling Skin/Breast Denies rash, Denies unusual bruising and Denies wounds Neuro Denies abnormal gait, Denies dizziness, Denies headache(s), Denies memory loss, Denies numbness, Denies Sensory deficit (Neuro), Denies tingling and Denies weakness Psych Denies anxiety, Denies depression and Denies memory loss Endo Denies cold intolerance, Denies fatigue, Denies heat intolerance, Denies polydipsia and Denies polyuria Phani/Lymph Denies easy bleeding and Denies easy bruising Aller/Immun Denies wheezing Physical exam (Primary Care) Vital Signs: Last Vital Signs Temp 97.2 F 08/10/25 09:18 Pulse 68 08/10/25 09:18 Resp 14 08/10/25 09:18 BP 122/78 08/10/25 09:18 Pulse Ox 99 08/10/25 09:18 Oxygen Delivery Method Room Air 08/10/25 09:18 BMI result Body Mass Index 35.6 Tobacco/Smoking Status: Tobacco use Status Tobacco use date assessed 08/10/25 08/10/25 09:20 Patient Tobacco Use Status Never used Tobacco 08/10/25 09:16 e-Cigarette/Vaping Use Never Used 08/10/25 09:16 PHQ-9: PHQ-9 Score PHQ-9: Total score 0 08/10/25 09:14 Depression Screening Interpretation: Negative Thrive Assessment: Date of Thrive Assessment Date Thrive assessed 08/10/25 08/10/25 09:14 Currently or been in a relationship where the following occur: No concerns reported Const General: no acute distress, well developed, alert and awake Nutritional Appearance: well nourished Orientation/consciousness: patient oriented x3 HENMT Head: Yes normocephalic and Yes atraumatic Ears: hearing grossly normal bilaterally and TM's normal bilaterally General nose exam: Normal external nose present and Normal nares present Mouth: Normal oral and palatal mucosa present and moist mucous membranes Teeth and gingiva: dentition normal Throat: Yes posterior oropharynx normal Eyes General: appearance normal, both eyes and all related structures Pupils: Equal, round and reactive pupils present and Pupil accommodation reflex normal EOM: EOMs intact bilaterally Neck Neck: Yes normal visual inspection, Yes no lymphadenopathy and Yes trachea midline Thyroid: Thyroid normal Carotids: no bruits Lymphatic: no lymphadenopathy noted Chest Chest palpation & inspection: normal inspection of the chest Resp Effort & Inspection: normal respiratory effort Auscultation: clear to auscultation bilaterally Cardio Rate: regular rate Rhythm: regular rhythm Heart sounds: S1 normal heart sound present, S2 normal heart sound present, no gallops, no murmurs and no rubs Bruits: no abdominal aortic bruits and no carotid bruits GI Palpation (GI): No Abdominal aortic bruit present, Soft to palpation, nontender, No hepatosplenomegaly present and No Rebound tenderness present Auscultation: normal bowel sounds General: Yes no CVA tenderness Back/Spine/Pelvis Back: no CVA tenderness Cervical Spine: cervical ROM normal and No Cervical spine tenderness Thoracic/Lumbar Spine: thoraco-lumbar ROM normal, No pain with thoraco-lumbar ROM, No thoracic spinal tenderness and No lumbar spinal tenderness Skin Lesions: no lesions Rashes: no rashes Trauma: no lacerations or abrasions Wounds: no wounds Nails: normal Neuro General: patient oriented x3 Cranial nerves: Yes Equal, round and reactive pupils present Cognition (Neuro): normal cognition Gait exam (Neuro): Normal gait present Motor exam (neuro): 5/5 motor strength present throughout Sensory Exam: No Sensory deficit (Neuro) Deep tendon reflexes (DTR's): Right patellar reflex intensity grade: 2+ and Left patellar reflex intensity grade: 2+ Extrem General: Yes normal to inspection and No edema Psych Appearance: grossly normal Affect: normal affect Attitude: cooperative Thought process: Normal thought process present Coding Level of Care Code Est Pt Level 3 (96611) Est Pt Prev Care 18-39y(21648) Diagnoses Adult general medical exam Z00.00 Screening for cervical cancer Z12.4 Obesity (BMI 30-39.9) E66.9 Additional Codes JANETT-7 Assessment Billing - JANETT-7 Assessment Tool: JANETT-7 Assessment 67117 ([id number]) PHQ-9 - 12887 - PHQ-9 Billing: Yes ([id number]) Assessment & Plan Assessment & Plan (1) Adult general medical exam: Code(s): Z00.00 - Encounter for general adult medical examination without abnormal findings Category: Medical Plan: 40-year-old female presents for complete physical exam Exam within limits Encouraged healthy diet with active lifestyle and plenty of exercise (2) Screening for cervical cancer: Code(s): Z12.4 - Encounter for screening for malignant neoplasm of cervix Category: Medical Plan: Up-to-date with Pap smear Follow-up with pasteurizing machine operator as recommended (3) Obesity (BMI 30-39.9): Code(s): E66.9 - Obesity, unspecified Category: Medical Plan: Patient had requested referral to weight management previously. She was never contacted. Referred today Orders: Referrals Medical Weight Management Referral E66.9 - Obesity, unspecified
[2025-08-10 09:18] VITALS: BP 122/78; PULSE 68; RESP 14; TEMP 36.2; O2SAT 99; BMI 35.6
--- OUTSIDE RECORDS SUMMARY | 2025-08-10 09:23 | XMS_ITS | Continuity of Care Document ---
Author Organization [facility] Address [address] [place] [address] Problems Condition ICD9 code ICD10 code SNOMED code Start Date End Date S tatus Encounter for screening for other metabolic disorders Z13.228 Results No Results Allergies, adverse reactions, alerts No known allergies and adverse reactions Medications No administered medications reported Vital Signs No vital signs reported Social History No smoking Hx information available
--- OUTSIDE RECORDS SUMMARY | 2025-08-10 09:23 | XMS_ITS | Continuity of Care Document ---
Author Organization [facility] Address [address] [place] [address] Problems Condition ICD9 code ICD10 code SNOMED code Start Date End Date S tatus Encounter for screening for other metabolic disorders Z13.228 Results No Results Allergies, adverse reactions, alerts No known allergies and adverse reactions Medications No administered medications reported Vital Signs No vital signs reported Social History No smoking Hx information available
== END 2025-08-10 09:45 | disposition home or self-care (01) ==
LOC: HO.HMCFM 09:01
PROVIDERS: PCP Family Medicine; Visit Provider Family Medicine
DX: Z00.00 Encounter for general adult medical examination without abnormal findings (principal); E66.9 Obesity, unspecified; Z68.35 Body mass index [BMI] 35.0-35.9, adult

== ENCOUNTER → 2025-08-10 09:00 | Outpatient (BNVA) | payer OTHER, SELFPAY | PROVIDERS: PCP Family Medicine; Visit Provider Family Medicine | DX: Z00.00 Encounter for general adult medical examination without abnormal findings (principal); E66.9 Obesity, unspecified; Z68.35 Body mass index [BMI] 35.0-35.9, adult; Z13.31 Encounter for screening for depression; Z13.39 Encounter for screening examination for other mental health and behavioral disorders | CPT/HCPCS: 96127 ==

== ENCOUNTER 2025-09-07 08:27 | Outpatient (REF) | payer OTHER, SELFPAY ==
--- OUTSIDE RECORDS SUMMARY | 2025-09-07 08:57 | XMS_ITS | Encounter Summary ---
Author Organization [facility] Address [address] [address] Phone Care Team Providers Care Project Management Specialist Name Role Phone Anirudh Unger MD Primary Care Provider [phone] Encounter Details Date Type Department Care Team (Late st Contact Info) Description 03/25/2018 Ancillary Orders [facility], X-Ray - [address] [address] Anirudh Unger MD [address] [place] [address] [email or web address] Positive TB test Social History Tobacco Use Types Packs/Day Years Used Date Smoking Tobacco: Never Assessed Comments Unknown Sex and Gender Information Value Date Recorded Sex Assigned at Not on file Legal Sex Female 9:58 AM EDT Gender Identity Not on file Sexual Orientation Not on file documented as of this encounter Plan of Treatment Not on file documented as of this encounter Results * XR CHEST PA AND LATERAL 2 VIEWS (03/25/2018 10:18 AM EDT) Anatomical Region Laterality Modality Chest Radiographic Shelly ging 03/25/2018 10:5 8 AM EDT Impressions 03/25/2018 10:58 AM EDT normal chest. POS - [id number] Narrative 03/25/2018 10:58 AM EDT EXAM: XR CHEST PA AND LATERAL 2 VIEWS COMPARISON: None FINDINGS: Heart and pulmonary vascularity are normal. No infiltrates or effusions are seen. Mediastinum has a normal appearance. Bony structures are intact. Procedure Note Deisy Corrigan MD - 03/25/2018 EXAM: XR CHEST PA AND LATERAL 2 VIEWS COMPARISON: None FINDINGS: Heart and pulmonary vascularity are normal. No infiltrates or effusionsare seen. Mediastinum has a normal appearance. Bony structures areintact. IMPRESSION: normal chest. POS - [id number] Anirudh Unger MD IMG XR CHEST Final Result documented in this encounter Visit Diagnoses Diagnosis Positive TB test Positive TB test documented in this encounter Care Teams Project Management Specialist Relationship Specialty Start Date End Date Anirudh Unger MD [address] [place] [address] [email or web address] PCP - General Emergency Medicine 03/21/18 documented as of this encounter Additional Source Comments The information contained in this document represents components of the legal health record. It is not the complete legal health record.[facility]
--- OUTSIDE RECORDS SUMMARY | 2025-09-07 08:57 | XMS_ITS | Encounter Summary ---
Author Organization [facility] Address [address] [facility] [address] [place] [address] Phone Care Team Providers Care Electronic Gluing Machine Operator Name Role Phone Anirudh Unger MD Primary Care Provider [phone] Encounter Details Date Type Department Care Team (Late st Contact Info) Description 03/21/2018 Transcribe Orders [facility] Phleb Main [address] [place] [address] Anirudh Unger MD [address] [place] [phone] [email or web address] OTHER DIAGNOSIS - PLEASE ANNOTATE. 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, ex wrs/hnd, init Social History Tobacco Use Types Packs/Day Years Used Date Smoking Tobacco: Never Assessed Comments Unknown Sex and Gender Information Value Date Recorded Sex Assigned at Not on file Legal Sex Female 9:58 AM EDT Gender Identity Not on file Sexual Orientation Not on file documented as of this encounter Plan of Treatment Not on file documented as of this encounter Results * T spot TB test (03/21/2018 10:25 AM EDT) T SPOT Tuberculosis Positive [facility] Blood 03/21/2018 10:2 5 AM EDT 03/21/2018 10:34 AM EDT us Anirudh Unger MD LAB BLOOD ORDERABLES Final R esult [address] [address] documented in this encounter Visit Diagnoses Diagnosis OTHER DIAGNOSIS - PLEASE ANNOTATE.- Primary 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 It is not the complete legal health record.[facility]
--- OUTSIDE RECORDS SUMMARY | 2025-09-07 08:57 | XMS_ITS | Clinical Summary ---
Author Organization [facility] Address [address] [facility] [address] [place] [address] Phone Care Team Providers Care Hr Intern Name Role Phone Anirudh Unger MD Primary Care Provider Social History Tobacco Use Types Packs/Day Years Used Date Smoking Tobacco: Never Assessed Education Answer Date Recorded Are you interested in more education? Not on shane e 02/26/2023 Are you concerned about learning? Not on file 02/26/2023 No 02/26/2023 No 02/26/2023 Digital Access Answer Date Recorded No 03/30/2023 No 03/30/2023 Reliable internet access at home? Not on file 03/30/2023 Device with a working camera? Not on file Comments Unknown Sex and Gender Information Value Date Recorded Sex Assigned at Not on file Legal Sex Female 9:58 AM EDT Gender Identity Not on file Sexual Orientation Not on file Plan of Treatment Health Maintenance Due Date Last Done Comments Adult Td,Tdap Booster 1986 DEPRESSION SCREENING 1998 HEPATITIS C SCREENING 2004 HIV ONE-TIME SCREENING (18-6 5 YEARS) 2004 PAP SMEAR 2007 INFLUENZA VACCINE (#1) 2025 , 08/14/2019, 10/11/2015 COVID-19 VACCINE (2024-2 6 season) 2025 12/23/2021 HEPATITIS A VACCINES Aged Out No long er eligible based on patient's age to complete this topic HIB VACCINES Aged Out No longer eligi ble based on patient's age to complete this topic MENINGOCOCCAL VACCINES (ACWY) Aged Out No longer eligible based on patient's age to complete this topic MENINGOCOCCAL VACCINES (B) Aged Out N o longer eligible based on patient's age to complete this topic PNEUMOCOCCAL VACCINES (0-49 years) Aged Out No longer eligible b ased on patient's age to complete this topic Medical Devices Not on file Insurance [employer] [facility] FULL [employer] NET FULL [employer] NET FULL [employer] Member Subscriber Plan / Payer (Ef fective 2018-Present) Name:Laura Cat Relation to Subscriber:Self Name:Laura Cat Payer ID:[id number] Group ID:Not on file Type:Medicaid Address: [place] [address] [place] [address] SAFETY NET FULL [employer] Member Subscriber Plan / Payer ( fective 2018-Present) Name:Laura Cat Relation to Subscriber:Self Name:Laura Cat Payer ID:[id number] Group ID:Not on file Type:Medicaid Address: [place] [address] [place] [address] FULL [employer] Member Subscriber Plan / Payer ( fective 2018-Present) Name:Laura Cat Relation to Subscriber:Self Name:Laura Cat Payer ID:[id number] Group ID:Not on file Type:Medicaid Address: [place] [address] [place] [address] NET FULL [employer] Member Subscriber Plan / Payer (Ef fective 2018-Present) Name:Laura Cat Relation to Subscriber:Self Name:Laura Cat Payer ID:[id number] Group ID:Not on file Type:Medicaid Address: [place] [address] [place] [address] FULL [employer] [facility] SAFETY NET FULL [facility] LIMITED [facility] NET FULL Care Teams Hr Intern Relationship Specialty Start Date End Date Anirudh Unger MD [address] [place] [address] [email or web address] PCP - General Emergency Medicine 03/21/18 Additional Source Comments The information contained in this document represents components of the legal health record. It is not the complete legal health record.[facility]
--- OUTSIDE RECORDS SUMMARY | 2025-09-07 08:57 | XMS_ITS | Continuity of Care Document ---
Author Organization [employer] [facility] Address [address] [place] [address] Problems Condition ICD9 code ICD10 code SNOMED code Start Date End Date S tatus Encounter for screening for other metabolic disorders Z13.228 Results No Results Allergies, adverse reactions, alerts No known allergies and adverse reactions Medications No administered medications reported Vital Signs No vital signs reported Social History No smoking Hx information available
[2025-09-07 11:33] LABS: MANUAL DIFF FLAG NO
[2025-09-07 11:36] LABS: Appearance Urine Clear; Glucose Urine UA Negative (Negative); PH 7.5 (5.0-9.0); Specific Gravity - Urine 1.015 (1.005-1.025); UMIC TRIGGER UA YES
[2025-09-07 11:51] LABS: Hematocrit 36.9 % (37.0-47.0); Hemoglobin 11.9 g/dl (12.0-16.0); Imm Gran Abs Auto 0.01 X10*3/uL (0.00-0.03); Imm Gran Pct Auto 0.1 % (0.0-0.4); Lymphocytes Absolute Auto 2.7 X10*3/uL (1.2-4.9); Mean Corpuscular HGB Conc 32.2 g/dl (31.0-35.0); Mean Corpuscular Hemoglobin 24.9 pg (27.0-33.0); Mean Corpuscular Volume 77.4 fL (80.0-98.0); NRBC Abs Auto 0.000 X10*3/uL (0.0-0.012); NRBC Pct Auto 0.0 /100WBC (0.0-0.2); Platelet Count 262 X10*3/uL (160-400); Red Blood Count 4.77 X10*6/uL (4.20-5.50); White Blood Count 6.8 X10*3/uL (4.8-10.8)
[2025-09-07 12:15] LABS: Alanine Aminotransferase 23 U/L (0-31); Albumin Level 4.1 g/dL (3.5-5.0); Alkaline Phosphatase 68 U/L (39-117); Anion Gap 9 (12-20); Aspartate Amino Transferase 27 U/L (5-31); Blood Urea Nitrogen 9 mg/dL (9-16); Calcium 8.9 mg/dL (8.4-10.2); Carbon Dioxide 25 mmol/L (22-29); Chloride 107 mmol/L (96-108); Cholesterol 186 mg/dL (<200); Estimated Glomerular Filt Rate > 60; HDL Cholesterol 52 mg/dL (>40); Potassium 4.3 mmol/L (3.3-5.1); Sodium 137 mmol/L (135-145); Total Protein 7.4 g/dL (6.5-8.0); Triglycerides 45 mg/dL (<150)
== END 2025-09-07 08:28 | disposition home or self-care (01) ==
LOC: HO.WFDLDS 08:27
PROVIDERS: Visit Provider Family Medicine
DX: Z00.00 Encounter for general adult medical examination without abnormal findings (principal); I10 Essential (primary) hypertension
CPT/HCPCS: 36415; 80053; 80061; 81001; 82043; 82570; 84443; 85025

== ENCOUNTER → 2025-09-11 09:57 | Outpatient (AMB) | payer OTHER, SELFPAY ==
--- NOTE | 2025-09-11 09:39 | A.OFFPC_ITS ---
Intake Visit Reasons: labs review Intake Note: patient is scheduled to review lab results Cytogeneticist Required: No Allergies No Known Allergies Allergy (Verified 09/11/25 09:39) Tobacco use date assessed: 08/10/25 Dental Screening Dental Screen Date: 08/10/25 HPI labs review HPI Details 40 y/o female presents to f/u labs via [employer]. Labs drawn 09/07/25. Reviewed labs with pt. Mild anemia. LDL elevated at 125. Triglycerides 45. TC 186. HDL 52. Trace urine bacteria seen. [facility] Surgical History History of Family History (Updated 08/10/25 @ 09:16 by Delaney Saleem CMA) Mother HTN (hypertension) Father HTN (hypertension) Social History (Updated 08/10/25 @ 09:16 by Delaney Saleem CMA) Housing: House Alcohol intake: never Patient Tobacco Use Status: Never used Tobacco e-Cigarette/Vaping Use: Never Used Second Hand Smoke Exposure: No service: No Current occupational status: employed Current occupational exposures/hazards: No Cognitive needs: No Hearing needs: No Vision needs: No Questionnaire Thrive Questionnaire Date Thrive assessed: 08/10/25 JANETT-7 AMB Questionnaire JANETT-7 Date JANETT - 7 assessed: 08/10/25 Source: Developed by Drs. Julio Ruelas, Autumn Cowan, Stephen Palacio and colleagues, with an educational scottie from [employer]. Review of Systems Const Denies chills, Denies fatigue, Denies fever(s), Denies headache(s) and Denies weakness ENT Denies dizziness and Denies headache(s) Card Denies dyspnea Resp Denies cough, Denies dyspnea, Denies wheezing and Denies other (shortness of breath) Musc Denies numbness and Denies tingling Neuro Denies dizziness, Denies headache(s), Denies numbness, Denies tingling and Denies weakness Psych Denies anxiety and Denies depression Endo Denies fatigue Aller/Immun Denies wheezing Physical exam (Primary Care) Tobacco/Smoking Status: Tobacco use Status Tobacco use date assessed 08/10/25 09/11/25 09:40 Patient Tobacco Use Status Never used Tobacco 09/11/25 09:40 e-Cigarette/Vaping Use Never Used 09/11/25 09:40 Thrive Assessment: Date of Thrive Assessment Date Thrive assessed 12/04/24 09/11/25 09:58 Telehealth Telehealth Telehealth Platform: Telephone Location of provider rendering services: practice address Location of patient: address on file Patient Identification confirmed using: Name, : Yes Telehealth method: voice only Patient verbally consented to treatment: Yes Patient verbally consented to billing insurance company: Yes Patient informed of any privacy concerns related to visit: Yes Minutes spent on Phone/Video with Pt.: 6 Coding Level of Care Code Tele Est Pt Level 2 (38808) Diagnoses Elevated LDL cholesterol level E78.00 Mild anemia D64.9 Bacteria in urine R82.71 Assessment & Plan Assessment & Plan (1) Elevated LDL cholesterol level: Code(s): E78.00 - Pure hypercholesterolemia, unspecified Category: Medical Plan: Mildly elevated LDL cholesterol. Goal is less than 100 Encouraged a diet lower in saturated fats and cholesterol We can follow-up in a few months (2) Mild anemia: Code(s): D64.9 - Anemia, unspecified Category: Medical Plan: Mild microcytic anemia and patient has a history of fibroids with heavy periods She notes that labs were drawn around the time of period We can recheck this with next blood draw. As it was mildly microcytic, will also check iron levels (3) Bacteria in urine: Code(s): R82.71 - Bacteriuria Category: Medical Plan: Patient notes some burning with urination Will send her a script for Macrobid Orders: Orders Lipid Panel Today E78.00 - Pure hypercholesterolemia, unspecified, Z00.00 - Encounter for general adult medical examination without abnormal findings Comprehensive [place]. Panel Fast Today E78.00 - Pure hypercholesterolemia, unspecified, Z00.00 - Encounter for general adult medical examination without abnormal findings IRON PROFILE Today D64.9 - Anemia, unspecified Complete Blood Count Auto Diff Today D64.9 - Anemia, unspecified, Z00.00 - Encounter for general adult medical examination without abnormal findings Medications: New nitrofurantoin monohyd/m-cryst 100 mg (Macrobid) must administer with a meal/food 100 mg PO BID 14 caps 0RF 7 days
--- OUTSIDE RECORDS SUMMARY | 2025-09-11 11:20 | XMS_ITS | Encounter Summary ---
Author Organization [facility] Address [address] [facility] [address] [place] [phone] Phone Care Team Providers Care Executive Services Administrator Name Role Phone Anirudh Unger MD Primary Care Provider [phone] Encounter Details Date Type Department Care Team (Late st Contact Info) Description 03/21/2018 Transcribe Orders [facility] Phleb Main [address] [place] [id number] Anirudh Unger MD [address] [place] [phone] [email or web address] OTHER DIAGNOSIS - PLEASE ANNOTATE. 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 It is not the complete legal health record.[facility]
--- OUTSIDE RECORDS SUMMARY | 2025-09-11 11:20 | XMS_ITS | Encounter Summary ---
Author Organization [facility] Address [address] [address] Phone Care Team Providers Care Cloth Examiner Name Role Phone Anirudh Unger MD Primary Care Provider [phone] Encounter Details Date Type Department Care Team (Late st Contact Info) Description 03/25/2018 Ancillary Orders [facility], X-Ray - [address] [address] Anirudh Unger MD [address] [place] [phone] [email or web address] Positive TB test Social History Tobacco Use [...] test documented in this encounter Care Teams Cloth Examiner Relationship Specialty Start Date End Date Anirudh Unger MD [address] [place] [phone] [email or web address] PCP - General Emergency Medicine 03/21/18 documented as of this encounter Additional Source Comments The information contained in this document represents components of the legal health record. It is not the complete legal health record.[facility]
--- OUTSIDE RECORDS SUMMARY | 2025-09-11 11:21 | XMS_ITS | Clinical Summary ---
Author Organization [facility] Address [address] [facility] [address] [place] [phone] Phone Care Team Providers Care Barrel Washer Name Role Phone Anirudh Unger MD Primary [...] on patient's age to complete this topic IPV VACCINES Aged Out No longer eligi ble [...] topic Medical Devices Not on file Insurance [employer] NET FULL [employer] LIMITED [employer] NET FULL [place] [employer] NET FULL [employer] SAFETY NET FULL [place] [employer] NET FULL [place] SAF[employer]Y NET FULL [employer] LIMITED [employer] NET FULL [employer] SAF[employer] NET FULL [facility] LIMITED Member Subscriber Plan / Payer (Ef fective 2018-Present) Name:Laura Cat Relation to Subscriber:Self Name:Laura Cat Payer ID:[id number] Group ID:Not on file Type:Medicaid Address: [address] NET FULL Care Teams Barrel Washer Relationship Specialty Start Date End Date Anirudh Unger MD [address] [place] [phone] [email or web address] PCP - General Emergency Medicine 03/21/18 Additional Source Comments The information contained in this document represents components of the legal health record. It is not the complete legal health record.[facility]
== END ==
LOC: HO.HMCFM 09:58
PROVIDERS: PCP Family Medicine; Visit Provider Family Medicine
DX: E78.00 Pure hypercholesterolemia, unspecified (principal); D64.9 Anemia, unspecified; R82.71 Bacteriuria